=== PATIENT | female | born 1945 | race Caucasian/White ===

== ENCOUNTER 2016-08-17 19:01 | Emergency (ER) | payer MEDICARE, BC ==
--- NOTE | 2016-08-17 19:38 | CT REPORT ---
HISTORY: Trauma. Injury. Change in mental status. TECHNIQUE: Axial non-contrast images obtained from skull vertex through foramen magnum. Dose reduction technique was utilized. FINDINGS: There is no evidence of acute hemorrhage, mass, or infarct. Ventricles and sulci are normal in size for the patient's age. Periventricular white matter is within normal limits. Espinoza-white differentia tion is maintained. Basilar cisterns are normal. The calvarium is intact. Paranasal sinuses and mastoid air cells are clear. IMPRESSION: Normal head CT. Final Electronic Signature: This report was electronically signed by Noe Chávez MD, FACR on 08/17/2016 7:36 PM. naima /
--- NOTE | 2016-08-17 19:58 | ER PHYSICIAN DOCUMENTATION ---
Physician Documentation [facility] Name:Yanet Randall Age:71 yrs Sex:Female :1945 Arrival Date:08/17/2016 Time:19:01 BedTrauma-A Private MD:Yoanna Nuñez ED, John Disposition: 08/17/16 19:48 Discharged to Home/Self Care. Impression: Post Concussion Syndrome. - Condition is Good. - Discharge Instructions: Post Concussion Symptoms - CONCUSSION, No Wake Up. - Medical Reconciliation form form. - Follow up: Yoanna Nuñez DO; When: As needed; Reason: Continuance of care. - Problem is new. - Symptoms have improved. HPI: 08/17 20:09 This 71 yrs old Female presents to ER via Walk In with complaints of Altered jm Mental Status. 20:09 The patient presents with confusion, trouble concentrating, balance is off. Onset: The jm symptom(s)/episode began/occurred today. Possible causes: head injury, a direct blow, impacting a hard surface, hitting wood surface, yesterday. Associated signs and symptoms: Pertinent positives: vomiting, Pertinent negatives: lightheadedness, nausea. Current symptoms: In the emergency department the patient's symptoms are unchanged from the initial presentation. The patient has not experienced similar symptoms in the past. The patient has not recently seen a physician. Pt fell off a bed yesterday striking her head on the wood floor. She said she saw some stars, but didn't think much of it. Today she boarded a a plane to come back home and vomited a few times and had some diarrhea. She feels slow like her balance is off. . Historical: - Allergies: No known drug Allergies; - Home Meds: 1. Premarin 0.3 mg oral tab 1 tab once daily 2. simvastatin 5 mg oral tab - PMHx: hyperlipidemia; - PSHx: None; - Tetanus: < 10 years. - Ebola Screening: : Patient negative for fever greater than or equal to 101.5 degrees Fahrenheit, and additional compatible Ebola Virus Disease symptoms. Patient denies exposure to infectious person. Patient denies travel to an Ebola-affected area in the 21 days before illness onset. No symptoms or risks identified at this time. . - Immunization history: Pneumococcal vaccine is up to date, Flu Vaccine < 1 year. - Social history: Smoking status: Patient states was never smoker of tobacco. Patient/guardian denies using alcohol, street drugs. ROS: 20:09 Constitutional: Negative for fatigue, fever. jm 20:09 Eyes: Negative for blurry vision, visual disturbance. 20:09 Cardiovascular: Negative for chest pain. 20:09 Respiratory: Negative for cough, shortness of breath. 20:09 Abdomen/GI: Positive for nausea, vomiting, diarrhea. 20:09 Neuro: Positive for dizziness, gait disturbance, Negative for headache. Exam: 20:00 Constitutional: The patient appears in no acute distress, alert, awake. jm 20:00 Eyes: Periorbital structures: appear normal, Pupils: equal, round, and reactive to light and accomodation, Extraocular movements: intact throughout. 20:00 ENT: Mouth: is normal, Posterior pharynx: is normal. 20:00 Neck: C-spine: appears grossly normal, Trachea: is midline with no obvious abnormalities. 20:00 Cardiovascular: Rate: normal, Rhythm: regular. 20:00 Respiratory: Respirations: normal, Breath sounds: are normal. 20:00 Abdomen/GI: Bowel sounds: normal, Palpation: abdomen is soft and non-tender. 20:00 Musculoskeletal/extremity: Sensation intact. Weight bearing: able to fully bear weight. 20:00 Skin: Appearance: Color: pink, no rash present. 20:00 Neuro: Mentation: is normal, Memory: is normal. 20:00 Neuro: Cranial nerves: CN II- XII are normal as tested, Cerebellar function: normal finger to nose testing, Motor: strength is 5/5 in all extremities, Gait: is steady. 20:00 Psych: Behavior/mood is pleasant, cooperative, Affect is calm. Vital Signs: 19:20 BP 149 / 85; Pulse 88; Resp 14; Temp 98.3; Pulse Ox 94% on R/A; Weight 55.79 kg; Height mk2 5 ft. 4 in. (162.56 cm); Pain 1/10; 19:55 BP 135 / 64; Pulse 84; Resp 15; Pulse Ox 97% on R/A; Pain 0/10; mk2 19:20 Body Mass Index 21.11 (55.79 kg, 162.56 cm) mk2 NIH Stroke Scale Scores: 19:43 NIHSS Score: 0 mk2 MDM: 19:04 Patient medically screened. radha 22:27 Differential Diagnosis: intracranial bleed, concision. Data reviewed: vital signs, radha nurses notes, old medical records, radiologic studies, and as a result, I will discharge patient. Counseling: I had a detailed discussion with the patient and/or guardian regarding: the historical points, exam findings, and any diagnostic results supporting the discharge/admit diagnosis, radiology results, the need for outpatient follow up, with the patient's primary care provider. 08/17 19:41 Order name: CAT SCAN; HEAD W/O CON [id number] EDMS Dispensed Medications: No medications were administered NIH Stroke Scale - NIH Stroke Score Date: 08/17/2016 Time: 19:43 Total Score = 0 1a. Level of Consciousness (LOC) - 0(Alert) 1b. Level of Consciousness (LOC) (Year & Age) - 0(Both) 1c. LOC Commands (Open & Closes Eyes/Leather Lacer) - 0(Both) 2. Best Gaze (Lateral Gaze Paresis) - 0(Normal) 3. Visual Field Loss - 0(No visual loss) 4. Facial Palsy - 0(Normal) 5a. Left Arm: Motor (10-second hold) - 0(No drift) 5b. Right Arm: Motor (10-second hold) - 0(No drift) 6a. Left Leg: Motor (5-second hold ? always test supine) - 0(No drift) 6b. Right Leg: Motor (5-second hold ? always test supine) - 0(No drift) 7. Limb Ataxia (finger/nose & heel/morales ? test with eyes open) - 0(Absent) 8. Sensory Loss (pinprick arms/legs/face) - 0(Normal) 9. Best Language: Aphasia (description/naming/reading) - 0(No aphasia) 10. Dysarthria (speech clarity ? read or repeat words) - 0(Normal) 11. Extinction and Inattention (visual/tactile/auditory/spatial/personal) - 0(No abnormality) Initials: mk2 Signatures: Crescencio Charles MD MD jm Kruger, Analia, RN RN mk2
--- NOTE | 2016-08-17 19:58 | ER NURSING DOCUMENTATION ---
Nurse's Notes [facility] Name:Yanet Randall Age:71 yrs Sex:Female :1945 Arrival Date:08/17/2016 Time:19:01 BedTrauma-A Private MD:Yoanna Nuñez Diagnosis:Post Concussion Syndrome Presentation: 08/17 19:09 Presenting complaint: Patient states: Pt states she slipped off the bed yesterday and mk2 hit the back of her head. She vomited once on the plane coming home today and has felt "SHAKY" AND felt she had trouble finding words. Transition of care: Home. 19:09 Method Of Arrival: Walk In 2 19:09 Acuity: HADLEY 3 mk2 Triage Assessment: 19:17 General: Appears in no apparent distress, Behavior is cooperative, pleasant. Pain: mk2 Denies pain. EENT: No deficits noted. Neuro: Level of Consciousness is awake, alert, Oriented to Moves all extremities. Gait is steady, Pt feels unsteady but appears to have a steady gait. . Speech is normal. 19:19 Cardiovascular: Heart tones S1 S2. Respiratory: Breath sounds are clear bilaterally. mk2 GI: Reports diarrhea, vomiting. Derm: No deficits noted. Musculoskeletal: Reports Pt reports minimal pain to the occipital area when she touches it from falling last night. No hematoma upon exam. Historical: - Allergies: No known drug Allergies; - Home Meds: 1. Premarin 0.3 mg oral tab 1 tab once daily 2. simvastatin 5 mg oral tab - PMHx: hyperlipidemia; - PSHx: None; - Tetanus: < 10 years. - Ebola Screening: : Patient negative for fever greater than or equal to 101.5 degrees Fahrenheit, and additional compatible Ebola Virus Disease symptoms. Patient denies exposure to infectious person. Patient denies travel to an Ebola-affected area in the 21 days before illness onset. No symptoms or risks identified at this time. . - Immunization history: Pneumococcal vaccine is up to date, Flu Vaccine < 1 year. - Social history: Smoking status: Patient states was never smoker of tobacco. Patient/guardian denies using alcohol, street drugs. Screenin:20 Infectious Disease Risk None. Abuse screen: Denies threats or abuse. Nutritional mk2 screening: No deficits noted. Assessment: 19:20 See Triage Assessment done by same RN. mk2 Vital Signs: 19:20 BP 149 / 85; Pulse 88; Resp 14; Temp 98.3; Pulse Ox 94% on R/A; Weight 55.79 kg; Height 2 5 ft. 4 in. (162.56 cm); Pain 1/10; 19:55 BP 135 / 64; Pulse 84; Resp 15; Pulse Ox 97% on R/A; Pain 0/10; mk2 19:20 Body Mass Index 21.11 (55.79 kg, 162.56 cm) 2 NIH Stroke Scale Scores: 19:43 NIHSS Score: 0 [facility] ED Course: 19:02 Patient arrived in ED. 19:02 Yoanna Nuñez DO is Private Physician. jhonny 19:04 Crescencio Charles MD is Attending Physician. radha 19:09 Analia Estrada, RN is Primary Nurse. 2 19:13 Triage completed. 2 19:[address] ms 19:20 Arm band placed on Bed in low position Call Light in Reach Gowned HOB Elevated Side 2 rails up x1. 19:21 Valuables Given to family. air sampling and monitoring on. Pulse ox on. NIBP on. Verbal reassurance 2 given. Warm blanket given. 19:[address] back from [address]. ms 19:44 Resting quietly. Although pt is alert and oriented, during conversation, she seemed to mk have trouble finding the right word and putting thoughts together. 19:48 Yoanna Nuñez DO is Referral Physician. radha Administered Medications: No medications were administered Outcome: 19:48 Discharge ordered by . radha 19:55 Discharged to home ambulatory. 2 19:55 Condition: good 19:55 Discharge instructions given to patient, Instructed on discharge instructions, follow up and referral plans. 19:57 Patient left the ED. [facility] 06 16:23 Discharge F/U Call: Unable to reach: no answer [facility] NIH Stroke Scale - NIH Stroke Score Date: 08/17/2016 Time: 19:43 Total Score = 0 1a. Level of Consciousness (LOC) - 0(Alert) 1b. Level of Consciousness (LOC) (Year & Age) - 0(Both) 1c. LOC Commands (Open & Closes Eyes/Automatic Dry Starch Operator) - 0(Both) 2. Best Gaze (Lateral Gaze Paresis) - 0(Normal) 3. Visual Field Loss - 0(No visual loss) 4. Facial Palsy - 0(Normal) 5a. Left Arm: Motor (10-second hold) - 0(No drift) 5b. Right Arm: Motor (10-second hold) - 0(No drift) 6a. Left Leg: Motor (5-second hold ? always test supine) - 0(No drift) 6b. Right Leg: Motor (5-second hold ? always test supine) - 0(No drift) 7. Limb Ataxia (finger/nose & heel/morales ? test with eyes open) - 0(Absent) 8. Sensory Loss (pinprick arms/legs/face) - 0(Normal) 9. Best Language: Aphasia (description/naming/reading) - 0(No aphasia) 10. Dysarthria (speech clarity ? read or repeat words) - 0(Normal) 11. Extinction and Inattention (visual/tactile/auditory/spatial/personal) - 0(No abnormality) Initials: mk2 Signatures: Crescencio Charles MD MD jm Strickland, Mary ms Kruger, Analia, RN RN andrey2 Rhonda Sosa
== END 2016-08-17 19:58 | disposition home or self-care (01) ==
LOC: ER 19:01
DX: F07.81 Postconcussional syndrome (principal); R41.82 Altered mental status, unspecified; R42 Dizziness and giddiness; R26.89 Other abnormalities of gait and mobility; R11.2 Nausea with vomiting, unspecified; R19.7 Diarrhea, unspecified; R29.700 NIHSS score 0; Z79.899 Other long term (current) drug therapy
CPT/HCPCS: 70450; 99284; 99285